=== PATIENT | female | born 1955 | race Caucasian/White ===

== ENCOUNTER 2025-01-18 10:50 | Outpatient (AMB) | payer MEDICARE, SELFPAY ==
--- OUTSIDE RECORDS SUMMARY | 2025-01-18 10:55 | XMS_ITS | Continuity of Care Document ---
Author Organization [facility] Address [address] [place], [place] Phone [phone] Care Team Providers Care Fingernail Sculpturer Name Role Phone Deena Tian Care Team Information Receiv er Unavailable ANGELICA SABA M.D. Care Team Information Rec eiver Unavailable Deena Tian Primary Care Physician Unava ilable Problems Active Problems Provider Date Osteopenia Angelica Saba M.D. Onset: 0 11/19/2021 Postmenopausal state Angelica Saba M.D. Ons et: 07/24/2021 Social History Type Date Description Comments Sex Female Sex Unknown Allergies and adverse reactions Active Allergies Criticality Reaction Severity Comments Date Dust Unable to assess criticality 07/21/2021 Mold Unable to assess criticality 07/21/2021 Trees Unable to assess criticality 07/21/2021 Medications Active Medications SIG Qnty Indications Order ing Provider Date Fluticasone Hokpkrpasr64brb/Act Suspension Deena Tian FNP [id number] Capsules 1 bid Deena Tian FNP Diclofenac Wjqted35ru Tablets DR Take 1 Tablet By Mouth Every Day(disc dz) Deena Tian FNP Bupropion Hydrochloride ER (SR)150mg Tablets ER 12HR Take 1 Tablet By Mouth Twice A Day Romelia Meeks MD Tzjoxpi22sgv Tablets Place 1 Tablet Vaginally Nightly For Two Weeks Then Decrease To Twice Weekly 8tabs Angelica Saba M.D. Albuterol Sulfate CIF832(90Base) mcg/Act Aerosol Inhale 2 Puffs Into The Lungs Every 4 Hours as Needed For Wheezing Or Shortness Deena Tian FNP Bgxssoblnjr850hv Capsules Take 4 Capsules By Mouth 1 Hour Prior To Dental Visit Unknown Multivitamin (Ca+44mg/D1000) Unknown 0 Metoprolol Succinate ER25mg Tablets ER 24HR Take if P>70, prn Deena Dimas FNP Montelukast Fcmwei70ke Tablets 1/d Deena Tian FNP History Medications Evamist1.53mg/[place] Solution apply 2 spray to skin a day 8.100ml Angelica Saba M.D. 03/04/2022 - 06/03/2022 Vivelle-Dot0.05mg/24HR Patches Biweek apply 1 patch to skin twice a week 8unchristiano Saba M.D. 03/03/2022 - 06/03/2022 Yvljgzpokhes088ns Capsules 1 tab by mouth every day 90caps Angelica Saba M.D. 03/03/2022 - 06/03/2022 Vivelle-Dot0.05mg/24HR Patches Biweek apply 1 patch to skin twice a week 8noam Saba M.D. 03/03/2022 - 06/03/2022 M85.80 Estradiol0.05mg/24HR Patches Weekly apply 1 patch to skin every week 4unchristiano Saba M.D. 02/22/2022 - 03/03/2022 M85.80 Alendronate Lyzzmb00sy Tablets 1 tab by mouth every week w/tall glass water, empty stomach, 4hr from calcium, stay upright 4tabs M85.80 Angelica Saba M.D. 11/19/2021 - 06/03/2022 Fluorouracil5% Cream Apply Once Daily To Chest For 2-3 Weeks Unknown - 07/24/2021 Estradiol0.1mg/GM Cream Deena Hickey FNP - 02/22/2022 Sulfamethoxazole/Trimeth oprim [id number] Tablets Take 1 Tablet By Mouth Twice A Day For 7 Days Unknown - 07/24/2021 Valacyclovir HCL1gm Tablets Take 1 Tablet By Mouth Twice A Day as Needed For Outbreaks Deena Tian FNP - 07/24/2021 Chlordiazepoxide OVQ38rk Capsules Take 1-2 Capsules By Mouth Every 6 Hours as Needed (Withdrawal Symptoms) Deena Tian FNP - 07/24/2021 Irghthdsxd529vc Capsules Take 1 Capsule By Mouth Twice A Day For 7 Days Deena Tian FNP - 07/24/2021 Qheyccu5uh Tablets Take One Tablet By Mouth Twice A Day Unknown - 06/03/2022
--- OUTSIDE RECORDS SUMMARY | 2025-01-18 10:55 | XMS_ITS | Encounter Summary ---
Author Organization [facility] Address [address] [facility] [address] [place] [address] Phone Care Team Providers Care Cloth Grader Supervisor Name Role Phone Deena Tian NP Unavailable [phone] Cathy Haynes ETIOLOGIST Unavailable [phone] Romelia Meeks MD Unavailable [phone] Diomedes Gerardo MD Unavailable Danette Reaves MD Unavailable [phone] Deena Tian NP Primary Care Provider [phone] Romeo Frances MD Unavailable [phone] Romelia Meeks MD Unavailable [phone] Deena Tian NP Unavailable + [phone] Sagrario Cunha Unavailable [phone] Encounter Details Date Type Department Care Team (Late st Contact Info) Description 09/07/2021 Procedure Pass [facility] Cardiac US [address] [place] [address] Social History Tobacco Use Types Packs/Day Years Used Date Smoking Tobacco: Never Smokeless Tobacco: Never Alcohol Use Standard Drinks/Week Comments Not Currently 0 (1 standard drink = 0.6 oz pure alcohol) Quit in 1993, short relapse 2020, none now Comments No Sex and Gender Information Value Date Recorded Sex Assigned at Female 06/07/2019 9:33 AM EST Legal Sex Female 9:58 PM EDT Gender Identity Female 06/07/2019 9:33 AM EST Sexual Orientation Straight 06/07/2019 9: 33 AM EST documented as of this encounter Functional Status * Calculated C-SSRS Risk Score (Lifetime/Recent) Answer Date of Assessment Author No Risk Indicated 09/08/2021 10:00 AM EDT Trina Moe RN * [facility] Suicide Severity Rating Scale (Screener/Recent Self-Report) Question Answer Date of Assessment Author 1. Wish to be (Past 1 Month) No 09/08/2021 10:00 AM TOMAST Trina Huerta RN 2. Non-Specific Active Suicidal Thoughts (Past 1 Month) No 09/08/2021 10:00 AM EDT Trina Huerta RN 6. Suicidal Behavior (Lifetime) No 09/08/2021 10:00 AM EDT Trina Huerta RN documented as of this encounter Plan of Treatment Upcoming Encounters Date Type Department Care Team (Late st Contact Info) Description 01/16/2025 Procedure Pass [address] [address] 01/22/2025 8:30 AM EDT Office Visit [facility] at [address] [address] Sagrario Cunha MBBS [address] [place] [address] 01/23/2025 9:40 AM EDT Office Visit [facility] Medicine [address] [place] [address] Kyle Fernandez PA-C [address] [place] [address] [place] [address] 03/25/2025 2:30 PM EDT Office Visit [facility] Plastic Surgery [address] [place] [address] Diomedes Gerardo MD [address] [facility] [place] [address] [email or web address] 07/10/2025 8:30 AM EST Office Visit [facility] [address] [place] [address] Nataliya Cordova MD [address] [place] [address], 2nd [place] [address] [email or web address] 09/02/2025 12:45 PM EDT Appointment [address] [address] Deena Tian NP [address] [facility] [address] [place] [address] [email or web address] documented as of this encounter Visit Diagnoses Not on filedocumented in this encounter Additional Health Concerns Infection Onset Date Last Indicated Resolved Time CoV-Risk 10/02/2021 10/02/2021 10/13/2021 1:24 AM EDT CoV-Risk 10/25/2021 10/25/2021 11/05/2021 1:22 AM EDT CoV-Exposed Comment:Recent close contact documented in the COVID-19 PCR/PRO order 11/07/2021 11/11/2021 11/18/2021 1:23 AM E DT CoV-Risk 03/24/2022 03/24/2022 04/04/2022 1:22 AM EDT COVID-19 05/30/2024 05/30/2024 06/20/2024 1:21 AM EST Assessment Noted Time PHQ-2 Depression Total Score: 1 11/18/19 21 6:31 PM EDT documented as of this encounter Care Teams Cloth Grader Supervisor Relationship Specialty Start Date End Date Deena Tian NP 14 [facility] [address] [place] [phone] [email or web address] PCP - General Internal Medicine 05/31/18 Deena Tian, PARMINDER [address] [place] [address] [email or web address] Historical LMR Provider 03/20/17 Cathy Haynes CNP [address] [place] [address] [email or web address] Historical LMR Provider 03/20/17 Romelia Meeks MD [address] [place] [address] [email or web address] Historical LMR Provider 03/20/17 Diomedes Gerardo MD [address] [place] [address] [email or web address] Historical LMR Provider 03/20/17 Danette Reaves MD [address] [place] [address] Orthopedics & Sports Medicine, [place] [address] [email or web address] Historical LMR Provider 03/20/17 Romeo Frances MD [address] [place] [address] [email or web address] [employer] Cardiology 07/01/21 Romelia Meeks MD [address] [place] [address] [email or web address] Insurance Assigned Provider 09/03/23 09/02/24 Deena Tian NP [address] [facility] [address] [place] [address] [email or web address] Insurance Assigned Provider 09/02/24 Sagrario Cunha MBBS [address] [place] [address] [email or web address] Primary Oncologist Medical Oncology 10/29/24 documented as of this encounter Additional Source Comments The information contained in this document represents components of the legal health record. It is not the complete legal health record.[facility]
--- NOTE | 2025-01-18 11:01 | MHC.OFFVIS ---
Vital Signs 01/18/25 11:03 Height 5 ft 6 in Weight 134 lb BMI 21.6 BP 142/89 H Blood Pressure Location Lt brachial Position Sitting Respiration 16 Pulse 74 Pulse Source Pulse Oximeter Pulse Oximetry (%) 97 Oxygen Delivery Method Room Air Intake Visit Reasons: Cervical radiculopathy Risk Control Specialist Required: No Accompanied by: Spouse Allergies No Known Allergies Allergy (Verified 01/18/25 11:04) Medication List - Last Reconciled 01/18/25 by Diana Escobar LPN albuterol sulfate 90 mcg/actuation (Ventolin HFA) 2 puffs inhalation Q6H PRN bupropion HCl XL (Wellbutrin XL) 300 mg PO QAM diclofenac potassium 50 mg PO DAILY fluticasone propionate 50 mcg/actuation (Flonase Allergy Relief) 2 sprays intranasal DAILY gabapentin 100 mg PO BID loratadine (Claritin) 10 mg PO DAILY metoprolol tartrate 10 mg PO BID montelukast (Singulair) 10 mg PO BEDTIME tizanidine 2 mg PO BID HPI HPI Cervical radiculopathy: Details: History of Present Illness The patient is a 69-year-old female presenting with neck pain and associated symptoms. The neck pain began approximately 2-1/2 months ago and is described as an aching, stabbing sensation with an intensity of 7 to 9 out of 10. The pain radiates down the shoulders and is accompanied by pins and needles in the arms, particularly worsening in the afternoon and evening, reaching an intensity of 8 to 9. 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 She has adjusted her workspace by raising her computer to head height and using a special chair. The patient has been taking gabapentin 100 mg twice daily, which has not provided significant relief. She has also attended physical therapy at [facility] in [place], which has not been effective in alleviating her symptoms. An MRI conducted at [facility] revealed significant degenerative changes in the cervical spine, particularly affecting the C3-4, C4-5, and C5-6 discs. These changes include disc degeneration and spondylosis, with one impinging on the cord. The patient has experienced occasional balance issues, feeling wobbly upon standing, which is a new symptom. She has a history of a broken shoulder from a fall while fast walking, which occurred on December 17. Pain Description - Onset: 2-1/2 months ago - Quality: Aching, stabbing sensation - Intensity: 7 to 9 out of 10 - Location: Neck, radiating down the shoulders - Radiation: Pins and needles in the arms - Timing: Worsens in the afternoon and evening - Impact: Disrupts sleep and daily activities - Exacerbating factors: Cervical flexion Physical Exam - Musculoskeletal: Cervical flexion reproduces +++ pain - Appears afebrile. - Alert and oriented. - Mood and affect appropriate. - Follows and participates in conversation appropriately. - Respiratory effort is unlabored. - Able to transition from sit to stand unassisted. Results - MRI: Significant degenerative changes in the cervical spine, particularly affecting C3-4, C4-5, and C5-6 discs with some impingement on the spinal cord Pain Management - Affect: Pain significantly disrupts sleep and daily activities - Analgesia: Currently taking gabapentin 100 mg twice daily with limited relief - Activities of Daily Living: Continues to work full-time, but pain disrupts daily activities [facility] Medical History (Updated 01/22/25 @ 13:33 by Rahul Trent MD) Spondylosis without myelopathy or radiculopathy, cervical region Radiculopathy, cervical region Physical Exam Vital Signs: Last Vital Signs Pulse 74 01/18/25 11:03 Resp 16 01/18/25 11:03 BP 142/89 H 01/18/25 11:03 Pulse Ox 97 01/18/25 11:03 Oxygen Delivery Method Room Air 01/18/25 11:03 BMI result Body Mass Index 21.6 Assessment & Plan Assessment & Plan (1) Radiculopathy, cervical region: Code(s): M54.12 - Radiculopathy, cervical region Category: Medical (2) Degeneration of cervical intervertebral disc: Code(s): M50.30 - Other cervical disc degeneration, unspecified cervical region Category: Medical (3) Cervical spinal stenosis: Code(s): M48.02 - Spinal stenosis, cervical region Category: Medical Plan Plan - Initiate PA for cervical epidural steroid injection C6/7 to manage cervical radiculopathy and improve tolerance for physical therapy. - Continue physical therapy with a focus on cervical traction and gentle stretching. - Consider surgical intervention if symptoms progress to include weakness or significant balance issues. - Schedule follow-up to assess response to interventions and adjust treatment plan as necessary. Patient was informed and verbally consented to the use of an ambient scribe for clinic note documentation during this visit. Discussion Notes I discussed with the patient the findings of significant degenerative changes in the cervical spine, particularly affecting the C3-4, C4-5, and C5-6 discs, and the implications for her symptoms. We reviewed the potential benefits and risks of a cervical epidural steroid injection as a first-line intervention to alleviate symptoms and improve participation in physical therapy. I explained that surgical intervention might be necessary if symptoms progress to include weakness or significant balance issues, and we discussed the importance of monitoring these symptoms closely. Patient Instructions - Continue taking gabapentin as prescribed. - Attend physical therapy sessions regularly, focusing on cervical traction and gentle stretching. - Monitor for any new symptoms such as weakness or significant balance issues and report them immediately. - Follow up as scheduled to assess response to treatment and adjust the plan as needed. Coding Level of Care Code New Pt Level 4 (46789) Diagnoses Radiculopathy, cervical region M54.12 Degeneration of cervical intervertebral disc M50.30 Cervical spinal stenosis M48.02
[2025-01-18 11:03] VITALS: BP 142/89; PULSE 74; RESP 16; O2SAT 97; BMI 21.6
== END 2025-01-18 11:54 | disposition home or self-care (01) ==
LOC: HO.PMC 10:51
PROVIDERS: PCP Nurse Practitioner Adult Health; Visit Provider Internal Medicine
DX: M54.12 Radiculopathy, cervical region (principal); M50.30 Other cervical disc degeneration, unspecified cervical region; M48.02 Spinal stenosis, cervical region
CPT/HCPCS: 99204

== ENCOUNTER → 2025-01-18 10:50 | Outpatient (BNVA) | payer MEDICARE, SELFPAY | PROVIDERS: PCP Nurse Practitioner Adult Health; Visit Provider Internal Medicine | DX: M54.12 Radiculopathy, cervical region (principal); M48.02 Spinal stenosis, cervical region; M50.30 Other cervical disc degeneration, unspecified cervical region | CPT/HCPCS: 99202 ==